=== PATIENT | female | born 1955 ===

== ENCOUNTER 2020-11-17 10:15 | Inpatient (IN) | payer OTHER ==
[~2020-11-17] VITALS: Ht 157.5 cm; Wt 66.7 kg
[2020-11-27] MEDS ORDERED: SYNTHROID88 MCG PO (08:08)
[2020-11-27] MEDS ORDERED: CARDIZEM CD240 MG PO (08:09)
[2020-11-27] MEDS ORDERED: ZESTRIL20 MG PO (08:09)
[2020-11-27] MEDS ORDERED: HYDROCHLOROTHIA50 MG PO (08:09)
[2020-11-27] MEDS ORDERED: INTESTINEX680 M1 PO (08:10)
[2020-11-27] MEDS ORDERED: LIPITOR20 MG PO (08:11)
[2020-11-27] MEDS ORDERED: B12 ACTIVE1000 MCG PO (08:11)
[2020-11-27] MEDS ORDERED: DICY20TA PO (08:11)
[2020-11-27] MEDS ORDERED: PRILOSEC OTC20 MG PO (08:11)
[2020-11-27] MEDS ORDERED: LEVSIN0.125 MG PO (08:12)
[2020-12-03] MEDS ORDERED: METFORMIN HCL850 M1 (09:12)
[2020-12-03] MEDS ORDERED: FOLIC ACID1 MG (09:12)
[2020-12-03] MEDS ORDERED: OMEPRAZOLE20 MG (09:12)
[2020-12-03] MEDS ORDERED: MAXIMUM D3325 MCG (09:12)
[2020-12-03] MEDS ORDERED: ANASTROZOLE1 MG (09:12)
[2020-12-03] MEDS ORDERED: FAMOTIDINE20 MG (09:13)
== END 2020-12-05 13:24 | disposition home or self-care (01) | DRG 331 ==
LOC: O/R 12-01 05:30 → SURH 12-01 05:30
PROVIDERS: ADMIT Colon & Rectal Surgery; ATTEND Colon & Rectal Surgery
PROC: 0DTN4ZZ Resection of Sigmoid Colon, Percutaneous Endoscopic Approach (ICD-10-PCS; 2020-12-01)
PROC: 0WQF4ZZ Repair Abdominal Wall, Percutaneous Endoscopic Approach (ICD-10-PCS; 2020-12-01)
PROC: 3E0F7SF Introduction of Other Gas into Respiratory Tract, Via Natural or Artificial Opening (ICD-10-PCS; 2020-12-01)
PROC: 0DTP4ZZ Resection of Rectum, Percutaneous Endoscopic Approach (ICD-10-PCS; principal; 2020-12-01 07:00)
DX: K57.32 Diverticulitis of large intestine without perforation or abscess without bleeding (principal); K43.2 Incisional hernia without obstruction or gangrene; I10 Essential (primary) hypertension; E03.8 Other specified hypothyroidism; E78.00 Pure hypercholesterolemia, unspecified

== ENCOUNTER 2021-02-04 20:07 | Emergency (ER) | payer OTHER ==
[~2021-02-04] VITALS: Ht 162.6 cm; Wt 68.0 kg
[~2021-02-04 20:07] MED LIST: ANASTROZOLE1 MG; B12 ACTIVE1000 MCG PO; CARDIZEM CD240 MG PO; DICY20TA PO; FAMOTIDINE20 MG; FOLIC ACID1 MG; HYDROCHLOROTHIA50 MG PO; INTESTINEX680 M1 PO; LEVSIN0.125 MG PO; LIPITOR20 MG PO; MAXIMUM D3325 MCG; METFORMIN HCL850 M1; OMEPRAZOLE20 MG; PRILOSEC OTC20 MG PO; SYNTHROID88 MCG PO; ZESTRIL20 MG PO
== END 2021-02-05 00:35 | disposition home or self-care (01) ==
LOC: ER 20:07
DX: R10.31 Right lower quadrant pain (principal); K76.0 Fatty (change of) liver, not elsewhere classified

== ENCOUNTER 2021-09-09 07:21 | Day surgery (SDC) | payer OTHER | END 2021-09-09 12:15 | disposition home or self-care (01) | LOC: AMB-ENDOS 07:21 | PROVIDERS: ATTEND Colon & Rectal Surgery | DX: K64.4 Residual hemorrhoidal skin tags (principal); I10 Essential (primary) hypertension; E03.9 Hypothyroidism, unspecified; K57.30 Diverticulosis of large intestine without perforation or abscess without bleeding; Z85.3 Personal history of malignant neoplasm of breast; Z88.8 Allergy status to other drugs, medicaments and biological substances; Z20.822 Contact with and (suspected) exposure to COVID-19 ==

== ENCOUNTER 2022-04-10 14:28 | Emergency (ER) | payer OTHER ==
[~2022-04-10] VITALS: Ht 157.5 cm; Wt 68.9 kg
== END 2022-04-10 20:41 | disposition home or self-care (01) ==
LOC: ER 14:28
DX: M54.9 Dorsalgia, unspecified (principal); Z85.3 Personal history of malignant neoplasm of breast; E03.9 Hypothyroidism, unspecified; I10 Essential (primary) hypertension; Z88.6 Allergy status to analgesic agent; Z88.0 Allergy status to penicillin; Z88.2 Allergy status to sulfonamides; Z91.040 Latex allergy status

== ENCOUNTER 2024-02-22 05:45 | Day surgery (SDC) | payer OTHER ==
[2024-02-22] MEDS ORDERED: ONDANSETRON HCL 2 MG/ML VIAL IV ONE (10:15)
[2024-02-22] MEDS ORDERED: DIPHENHYDRAMINE HCL 50 MG/ML VIAL 1ML IV ONE (10:15)
[2024-02-22] MEDS ORDERED: fentaNYL CITRATE 50 MCG/ML AMPUL IV PUSH ONE (10:15)
[2024-02-22] MEDS ORDERED: MIDAZOLAM HCL 2 MG/2 ML VIAL IV ONE (10:15)
== END 2024-02-22 11:20 | disposition home or self-care (01) ==
LOC: AMB-ENDOS 05:45
PROVIDERS: ATTEND Colon & Rectal Surgery
DX: K63.5 Polyp of colon (principal); Z88.0 Allergy status to penicillin; Z88.6 Allergy status to analgesic agent; Z91.040 Latex allergy status